=== PATIENT | male | born 1980 | race Two or more races ===

== ENCOUNTER 2023-11-28 21:44 | Emergency (ER) | payer OTHER ==
[~2023-11-28] VITALS: Ht 185.4 cm; Wt 122.0 kg
[2023-11-28 22:28] VITALS: TEMP 98.3; O2SAT 100
[2023-11-29] MEDS ORDERED: IBUP-2029 MT (00:59)
[2023-11-29] MEDS ORDERED: METH-653 MT (00:59)
[2023-11-29] MEDS: KETOROLAC 30MG/ML VIAL IM ONE (01:01)
[2023-11-29] MEDS: METHOCARBAMOL 500MG TABLET PO ONE (01:02)
[2023-11-29 02:11] VITALS: BP 160/86; PULSE 60; RESP 13
== END 2023-11-29 02:13 | disposition home or self-care (01) ==
LOC: ER 21:44
DX: S63.501A Unspecified sprain of right wrist, initial encounter (principal); S43.401A Unspecified sprain of right shoulder joint, initial encounter; V49.49XA Driver injured in collision with other motor vehicles in traffic accident, initial encounter; Y93.89 Activity, other specified; Y92.89 Other specified places as the place of occurrence of the external cause; Y99.8 Other external cause status
CPT/HCPCS: 99285; 71045; 73030; 73110; 70450; 96372; J1885